=== PATIENT | male | born 1995 | race Caucasian/White ===

== ENCOUNTER 2021-09-08 03:03 | Emergency (ER) | payer OTHER, MEDICAID ==
[~2021-09-08] VITALS: Ht 177.8 cm; Wt 100.0 kg
[2021-09-08] MEDS ORDERED: IBUPROFEN 800MG TABLET PO ONE (04:30)
[2021-09-08] MEDS ORDERED: ARIPIPRAZOLE 5MG TABLET PO ONE (04:30)
[2021-09-08 05:05] VITALS: BP 157/104
== END 2021-09-08 06:15 ==
LOC: ER 04:10
DX: S60.221A Contusion of right hand, initial encounter (principal); F12.10 Cannabis abuse, uncomplicated; F15.10 Other stimulant abuse, uncomplicated; F11.20 Opioid dependence, uncomplicated; X58.XXXA Exposure to other specified factors, initial encounter; Y93.89 Activity, other specified; Y92.89 Other specified places as the place of occurrence of the external cause; Y99.8 Other external cause status
CPT/HCPCS: 73130; 73600; 73630; 99284